=== PATIENT | male | born 1940 | race Caucasian/White ===

== ENCOUNTER → 2016-09-17 | Outpatient (CLI) | payer OTHER ==
--- NOTE | 2016-09-17 13:05 | DX ---
PA and Lateral Chest X-ray 1131 hours History: Pruritus. Evaluate for lymphoma/lymphadenopathy. Findings: Heart size and pulmonary vasculature are normal. The lungs are clear without infiltrates or effusions. There is no pneumothorax. There is no significant hilar or mediastinal lymphadenopathy ap preciated. The osseous structures are intact. Impression: Normal chest x-ray.
== END ==
LOC: BMCIMAGING 11:32
DX: L29.9 Pruritus, unspecified (principal); L30.9 Dermatitis, unspecified

== ENCOUNTER 2017-04-30 15:48 | Inpatient (IN) | payer OTHER ==
[2017-04-30] MEDS ORDERED: NS 500 ML IV ONE (16:52)
--- NOTE | 2017-04-30 16:58 | EDPHY ---
H & P Time Seen by Provider: 04/30/17 16:17 HPI/ROS: CHIEF COMPLAINT: Abdominal pain HISTORY OF PRESENT ILLNESS: The patient is a 76-year-old male who presents emergency department with multiple complaints. He states on Tuesday he developed vague symptoms. He felt as though he had "a bug". The patient reports mild decreased appetite. He also felt bloating. Today his pushed on his abdomen and he noticed right lower quadrant pain. He has mild discomfort in the right lower quadrant over the past couple of days but it is been subtle. He noticed that when he was playing tennis. He has no dysuria frequency. No fevers or chills. No nausea or vomiting. REVIEW OF SYSTEMS: My complete review of systems is negative except as mentioned in the HPI. Past Medical/Surgical History: Denies Past surgical history: Orthopedic surgery Social history: Patient does not smoke. He is . GENERAL: Well-appearing, in no acute distress, alert. HEENT: Eyes normal to inspection, normal pharynx, no signs of dehydration. NECK: No thyromegaly, no lymphadenopathy, supple. RESPIRATORY: Clear to auscultation bilaterally, no rales, rhonchi or wheezing. CVS: Regular rate and rhythm, no rubs, murmurs, or gallops. ABDOMEN: Soft, mild RLQ TTP, nondistended, no organomegaly. BACK: Normal to inspection, no CVA tenderness. SKIN: Normal color, no rash, warm, dry. No pallor. EXTREMITIES: No pedal edema, no calf tenderness, no Homans sign or cords, no joint swelling. NEURO/PSYCH: Alert and oriented, normal mood and affect, normal motor sensory exam. Smoking Status: Never smoked Physical Exam: GENERAL: Well-appearing, in no acute distress, alert. HEENT: Eyes normal to inspection, normal pharynx, no signs of dehydration. NECK: No thyromegaly, no lymphadenopathy, supple. RESPIRATORY: Clear to auscultation bilaterally, no rales, rhonchi or wheezing. CVS: Regular rate and rhythm, no rubs, murmurs, or gallops. ABDOMEN: Soft, nontender, nondistended, no organomegaly. BACK: Normal to inspection, no CVA tenderness. SKIN: Normal color, no rash, warm, dry. No pallor. EXTREMITIES: No pedal edema, no calf tenderness, no Homans sign or cords, no joint swelling. NEURO/PSYCH: Alert and oriented, normal mood and affect, normal motor sensory exam. Constitutional: Initial Vital Signs Temperature (C) 37.0 C 04/30/17 15:51 Heart Rate 87 04/30/17 15:51 Respiratory Rate 16 04/30/17 15:51 Blood Pressure 154/82 H 04/30/17 15:51 O2 Sat (%) 95 04/30/17 15:51 O2 Delivery Mode Room Air Allergies/Adverse Reactions: No Known Allergies Allergy (Unverified 04/30/17 15:50) Home Medications: Medication Instructions Recorded NK [No Known Home Meds] 04/30/17 Medical Decision Making - Diagnostics Imaging Results: Imaging Impressions Abdomen Ultrasound 04/30/17 16:52 Impression: 1. Complex hypoechoic lobulated possible mass right mid abdomen below the level of the kidney in the right flank region. CT of the abdomen and pelvis is recommended for further characterization. 2. The appendix is not positively identified. Findings discussed with Hailey Blank M.D. at 17:32 hour, 04/30/2017. Abdomen CT 04/30/17 17:19 Impression: 1. Complex lesion right mid iliac fossa in the expected location of the appendix with hypodense component centrally and complex thickened enhancement peripherally. 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 Other possibility would include ruptured walled off appendix or possibly carcinoid. 2. Complex hypodense partially fat containing lesion off the upper pole of the right kidney measuring about 11 mm with some punctate peripheral calcifications. This could represent incidental angiomyolipoma. Findings discussed with Hailey Blank M.D. at 19:31 hour, 04/30/2017. ED Course/Re-evaluation: In the emergency department I discussed possible etiologies with the patient I answered all his questions. An IV was placed. Laboratory studies were ordered. Ultrasound right lower quadrant was ordered. Patient had mildly elevated white count. Chemistry panel is unremarkable. Ultrasound: Please refer the dictated report by Dr. Franc Collins. I discussed the results with Dr. Collins. Based on the ultrasound results a CT with IV contrast was ordered. I discussed the plan with the patient. I answered all his questions. CT of the abdomen pelvis with IV contrast: Please refer the dictated report by Dr. Franc Collins. I personally reviewed the images with Dr. Collins. The patient appears to have messed the location of his appendix. Appendix is a large. This could represent appendiceal tumor versus abscess. I discussed the results with the patient. Patient was given Invanz 1 g IV. The I discussed the case with Dr. Hathaway from surgery. He will come evaluate the patient. Differential Diagnosis: My differential includes but is not limited to appendicitis, small-bowel obstruction, perforation, viral illness, electrolyte abnormality, sugar abnormality - Data Points Laboratory Results: Laboratory Results 04/30/17 17:10 04/30/17 17:10 04/30/17 04/30/17 04/30/17 17:10 17:10 17:10 WBC 14.39 10^3/uL H 10^3/uL (3.80-9.50) RBC 4.94 10^6/uL 10^6/uL (4.40-6.38) Hgb 15.1 g/dL g/dL (13.7-17.5) Hct 43.7 % % (40.0-51.0) MCV 88.5 fL fL (81.5-99.8) MCH 30.6 pg pg (27.9-34.1) MCHC 34.6 g/dL g/dL (32.4-36.7) RDW 12.4 % % (11.5-15.2) Plt Count 239 10^3/uL 10^3/uL (150-400) MPV 9.8 fL fL (8.7-11.7) Neut % (Auto) 78.8 % H % (39.3-74.2) Lymph % (Auto) 9.9 % L % (15.0-45.0) [place] % (Auto) 8.9 % % (4.5-13.0) Eos % (Auto) 1.3 % % (0.6-7.6) Baso % (Auto) 0.4 % % (0.3-1.7) Nucleat RBC Rel Count 0.0 % % (0.0-0.2) Absolute Neuts (auto) 11.34 10^3/uL H 10^3/uL (1.70-6.50) Absolute Lymphs (auto) 1.42 10^3/uL 10^3/uL (1.00-3.00) Absolute Monos (auto) 1.28 10^3/uL H 10^3/uL (0.30-0.80) Absolute Eos (auto) 0.19 10^3/uL 10^3/uL (0.03-0.40) Absolute Basos (auto) 0.06 10^3/uL 10^3/uL (0.02-0.10) Absolute Nucleated RBC 0.00 10^3/uL 10^3/uL (0-0.01) Immature Gran % 0.7 % % (0.0-1.1) Immature Gran # 0.10 10^3/uL 10^3/uL (0.00-0.10) PT 14.8 SEC SEC (12.0-15.0) INR 1.16 (0.83-1.16) APTT 27.5 SEC SEC (23.0-38.0) Sodium 136 mEq/L mEq/L (134-144) Potassium 4.3 mEq/L mEq/L (3.5-5.2) Chloride 102 mEq/L mEq/L (97-110) Carbon Dioxide 22 mEq/l mEq/l (22-31) Anion Gap 12 mEq/L mEq/L (8-16) BUN 21 mg/dL mg/dL (7-23) Creatinine 1.0 mg/dL mg/dL (0.7-1.3) Estimated GFR > 60 Glucose 90 mg/dL mg/dL (70-100) Calcium 8.9 mg/dL mg/dL (8.5-10.4) Total Bilirubin 0.7 mg/dL mg/dL (0.1-1.4) Conjugated Bilirubin 0.3 mg/dL mg/dL (0.0-0.5) Unconjugated Bilirubin 0.4 mg/dL mg/dL (0.0-1.1) AST 20 IU/L IU/L (17-59) ALT 34 IU/L IU/L (21-72) Alkaline Phosphatase 68 IU/L IU/L (38-126) Total Protein 6.9 g/dL g/dL (6.3-8.2) Albumin 3.9 g/dL g/dL (3.5-5.0) Lipase 82 IU/L IU/L (23-300) Medications Given: Discontinued Medications Sodium Chloride (Ns) 500 mls @ 0 mls/hr IV EDNOW ONE; Wide Open PRN Reason: Protocol Stop: 04/30/17 16:53 Last Admin: 04/30/17 17:00 Dose: 500 mls Departure - Departure Disposition: Home, Routine, Self-Care Clinical Impression: Abdominal pain Qualifiers: Abdominal location: right lower quadrant Qualified Code(s): R10.31 - Right lower quadrant pain Appendicitis Qualifiers: Appendicitis type: acute appendicitis Acute appendicitis type: with localized peritonitis Qualified Code(s): K35.3 - Acute appendicitis with localized peritonitis Condition: Good Instructions: Abdominal Pain (ED) Referrals: Janice Griffiths MD [Primary Care Provider] - As per Instructions
[2017-04-30 17:20] LABS: % IMMATURE GRANULYOCYTES 0.7 % (0.0-1.1); ADD DIFF? NO; ADD MORPH? NO; ADD SCAN? NO; ATYPICAL LYMPHOCYTE FLAG 0 (0-99); FRAGMENT RBC FLAG 0 (0-99); HEMATOCRIT 43.7 % (40.0-51.0); HEMOGLOBIN 15.1 g/dL (13.7-17.5); LEFT SHIFT FLG 0 (0-99); LIPEMIA HEMOLYSIS FLAG 90 (0-99); MEAN CELL HEMOGLOBIN 30.6 pg (27.9-34.1); MEAN CELL HEMOGLOBIN CONCENTR. 34.6 g/dL (32.4-36.7); MEAN CELL VOLUME 88.5 fL (81.5-99.8); MEAN PLATELET VOLUME 9.8 fL (8.7-11.7); PLATELET CLUMPS FLAG 0 (0-99); PLATELET COUNT 239 10^3/uL (150-400); RED BLOOD CELL COUNT 4.94 10^6/uL (4.40-6.38); RED CELL DISTRIBUTION WIDTH 12.4 % (11.5-15.2)
[2017-04-30 17:30] LABS: ALANINE AMINOTRANSFERASE 34 IU/L (21-72); ALBUMIN 3.9 g/dL (3.5-5.0); ALKALINE PHOSPHATASE 68 IU/L (38-126); ANION GAP 12 mEq/L (8-16); ASPARTATE AMINOTRANSFERASE 20 IU/L (17-59); BILIRUBIN,TOTAL 0.7 mg/dL (0.1-1.4); BILIRUBIN-CONJUGATED 0.3 mg/dL (0.0-0.5); BILIRUBIN-UNCONJUGATED 0.4 mg/dL (0.0-1.1); CALCIUM 8.9 mg/dL (8.5-10.4); CARBON DIOXIDE 22 mEq/l (22-31); CHLORIDE 102 mEq/L (97-110); GLOMERULAR FILTRATION RATE > 60; GLUCOSE 90 mg/dL (70-100); POTASSIUM 4.3 mEq/L (3.5-5.2); SODIUM 136 mEq/L (134-144); TOTAL PROTEIN 6.9 g/dL (6.3-8.2)
[2017-04-30] MEDS ORDERED: IOPAMIDOL (ISOVUE-300) 100 ML BTL ONE (17:45)
[2017-04-30 18:42] LABS: APTT 27.5 SEC (23.0-38.0); INR 1.16 (0.83-1.16); PROTIME(PATIENT) 14.8 SEC (12.0-15.0)
[2017-04-30] MEDS ORDERED: ERTAPENEM 1 GM in NS 100 ML IV ONE (19:34)
[2017-04-30 19:57] LABS: COLOR YELLOW; LEUKOCYTE ESTERASE,URINE NEGATIVE (NEGATIVE); NITRITE,URINE NEGATIVE (NEGATIVE)
[2017-04-30 20:01] LABS: MUCUS TRACE /lpf (NONE-1+)
--- NOTE | 2017-04-30 21:17 | PDGENHP ---
History and Physical - Chief Complaint Right lower quadrant abdominal pain - History of Present Illness Dio Regalado is a 76-year-old gentleman in good health who presents to the hospital after 4 days of worsening right lower quadrant abdominal pain. He has had fevers and chills at home bloating with eructation. The patient has not had any previous history of weight loss night sweats or other GI issues. His last colonoscopy he believes to be about 15 years ago. No family history of GI problems. The patient rates his pain as a 4 5/10 and he had rebound tenderness at home. Last meal was at 1:30 this afternoon History Information - Allergies/Home Medication List Allergies/Adverse Reactions: No Known Allergies Allergy (Unverified 04/30/17 15:50) Home Medications: Ibuprofen [Motrin (*)] 200 - 400 mg PO Q4 PRN 04/30/17 [Last Taken Unknown] I have personally reviewed and updated: family history, medical history, social history, surgical history - Past Medical History no pertinent PMH - Surgical History Additional surgical history: Right shoulder rotator cuff surgery x2, lumbar fusion, bilateral knee surgery - Family History Additional family history: Mother with skin cancer on her nose - Social History Smoking Status: Never smoked Alcohol Use: Occasionally 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 Review of Systems Review of Systems: ROS: 10pt was reviewed & negative except for what was stated in HPI & below Gastrointestinal: Reports: abdominal pain, abdominal distention Physical Exam Physical Exam: Temp Pulse Resp BP Pulse Ox 37.4 C 88 16 134/81 H 93 04/30/17 19:58 04/30/17 19:58 04/30/17 19:58 04/30/17 19:58 04/30/17 19:58 Constitutional: no apparent distress Eyes: anicteric sclera, EOMI Ears, Nose, Mouth, Throat: moist mucous membranes, hearing normal, ears appear normal Cardiovascular: regular rate and rhythym Peripheral Pulses: 2+: carotid (R), carotid (L), femoral (R), femoral (L), dorsalis-pedis (R), dorsalis-pedis (L) Respiratory: no respiratory distress, no rales or rhonchi, clear to auscultation Gastrointestinal: no palpable masses, tenderness (Right lower quadrant), rebound , No ascites, No boss's sign Genitourinary: No no bladder fullness Skin: warm Musculoskeletal: full muscle strength, normal joint ROM Neurologic: AAOx3, sensation intact bilaterally, CN II-XII Intact Psychiatric: interacting appropriately Lymph, Heme, Immunologic: No lymphadenopathy Lab Data & Imaging Review 04/30/17 17:10 04/30/17 17:10 WBC 14.39 10^3/uL (3.80-9.50) H 04/30/17 17:10 RBC 4.94 10^6/uL (4.40-6.38) 04/30/17 17:10 Hgb 15.1 g/dL (13.7-17.5) 04/30/17 17:10 Hct 43.7 % (40.0-51.0) 04/30/17 17:10 MCV 88.5 fL (81.5-99.8) 04/30/17 17:10 MCH 30.6 pg (27.9-34.1) 04/30/17 17:10 MCHC 34.6 g/dL (32.4-36.7) 04/30/17 17:10 RDW 12.4 % (11.5-15.2) 04/30/17 17:10 Plt Count 239 10^3/uL (150-400) 04/30/17 17:10 MPV 9.8 fL (8.7-11.7) 04/30/17 17:10 Neut % (Auto) 78.8 % (39.3-74.2) H 04/30/17 17:10 Lymph % (Auto) 9.9 % (15.0-45.0) L 04/30/17 17:10 [place] % (Auto) 8.9 % (4.5-13.0) 04/30/17 17:10 Eos % (Auto) 1.3 % (0.6-7.6) 04/30/17 17:10 Baso % (Auto) 0.4 % (0.3-1.7) 04/30/17 17:10 Nucleat RBC Rel Count 0.0 % (0.0-0.2) 04/30/17 17:10 Absolute Neuts (auto) 11.34 10^3/uL (1.70-6.50) H 04/30/17 17:10 Absolute Lymphs (auto) 1.42 10^3/uL (1.00-3.00) 04/30/17 17:10 Absolute Monos (auto) 1.28 10^3/uL (0.30-0.80) H 04/30/17 17:10 Absolute Eos (auto) 0.19 10^3/uL (0.03-0.40) 04/30/17 17:10 Absolute Basos (auto) 0.06 10^3/uL (0.02-0.10) 04/30/17 17:10 Absolute Nucleated RBC 0.00 10^3/uL (0-0.01) 04/30/17 17:10 Immature Gran % 0.7 % (0.0-1.1) 04/30/17 17:10 Immature Gran # 0.10 10^3/uL (0.00-0.10) 04/30/17 17:10 PT 14.8 SEC (12.0-15.0) 04/30/17 17:10 INR 1.16 (0.83-1.16) 04/30/17 17:10 APTT 27.5 SEC (23.0-38.0) 04/30/17 17:10 Sodium 136 mEq/L (134-144) 04/30/17 17:10 Potassium 4.3 mEq/L (3.5-5.2) 04/30/17 17:10 Chloride 102 mEq/L (97-110) 04/30/17 17:10 Carbon Dioxide 22 mEq/l (22-31) 04/30/17 17:10 Anion Gap 12 mEq/L (8-16) 04/30/17 17:10 BUN 21 mg/dL (7-23) 04/30/17 17:10 Creatinine 1.0 mg/dL (0.7-1.3) 04/30/17 17:10 Estimated GFR > 60 04/30/17 17:10 Glucose 90 mg/dL (70-100) 04/30/17 17:10 Calcium 8.9 mg/dL (8.5-10.4) 04/30/17 17:10 Total Bilirubin 0.7 mg/dL (0.1-1.4) 04/30/17 17:10 Conjugated Bilirubin 0.3 mg/dL (0.0-0.5) 04/30/17 17:10 Unconjugated Bilirubin 0.4 mg/dL (0.0-1.1) 04/30/17 17:10 AST 20 IU/L (17-59) 04/30/17 17:10 ALT 34 IU/L (21-72) 04/30/17 17:10 Alkaline Phosphatase 68 IU/L (38-126) 04/30/17 17:10 Total Protein 6.9 g/dL (6.3-8.2) 04/30/17 17:10 Albumin 3.9 g/dL (3.5-5.0) 04/30/17 17:10 Lipase 82 IU/L (23-300) 04/30/17 17:10 Urine Color YELLOW 04/30/17 19:49 Urine Appearance CLEAR 04/30/17 19:49 Urine pH 5.0 (5.0-7.5) 04/30/17 19:49 Ur Specific [place] > 1.035 (1.002-1.030) H 04/30/17 19:49 Urine Protein NEGATIVE (NEGATIVE) 04/30/17 19:49 Urine Ketones 1+ (NEGATIVE) H 04/30/17 19:49 Urine Blood 1+ (NEGATIVE) H 04/30/17 19:49 Urine Nitrate NEGATIVE (NEGATIVE) 04/30/17 19:49 Urine Bilirubin NEGATIVE (NEGATIVE) 04/30/17 19:49 Urine Urobilinogen NEGATIVE EU (0.2-1.0) 04/30/17 19:49 Ur Leukocyte Esterase NEGATIVE (NEGATIVE) 04/30/17 19:49 Urine RBC 5-10 /hpf (0-3) H 04/30/17 19:49 Urine WBC 1-3 /hpf (0-3) 04/30/17 19:49 Ur Epithelial Cells NONE SEEN /lpf (NONE-1+) 04/30/17 19:49 Urine Mucus TRACE /lpf (NONE-1+) 04/30/17 19:49 Urine Glucose NEGATIVE (NEGATIVE) 04/30/17 19:49 Imaging Review: Imaging Impressions Abdomen Ultrasound 04/30/17 16:52 Impression: 1. Complex hypoechoic lobulated possible mass right mid abdomen below the level of the kidney in the right flank region. CT of the abdomen and pelvis is recommended for further characterization. 2. The appendix is not positively identified. Findings discussed with Hailey Blank M.D. at 17:32 hour, 04/30/2017. Abdomen CT 04/30/17 17:19 Impression: 1. Complex lesion right mid iliac fossa in the expected location of the appendix with hypodense component centrally and complex thickened enhancement peripherally. 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 Other possibility would include ruptured walled off appendix or possibly carcinoid. 2. Complex hypodense partially fat containing lesion off the upper pole of the right kidney measuring about 11 mm with some punctate peripheral calcifications. This could represent incidental angiomyolipoma. Findings discussed with Hailey Blank M.D. at 19:31 hour, 04/30/2017. Visualized and Interpreted imaging results: Yes Interpretation: Discussed with Dr. 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 The patient has been started on Invanz. NPO, IV fluids. I anticipate approximately 3-5 day hospital stay postoperatively. All questions were addressed. The risks benefits and alternatives of surgery or outlined with verbal confirmation of understanding prior to signing consent. The risks include but are not limited to bleeding, infection, anesthesia complications, anastomotic leak, inability to complete surgery. Need for further intervention is also considered. The patient is spouse were happy with this plan. We will plan to proceed at the earliest opportunity.
[2017-04-30] MEDS ORDERED: MIDAZOLAM 2 MG/2 ML VIAL IVP ONE (21:27)
--- NOTE | 2017-04-30 21:27 | PDANEPAE ---
ANE History of Present Illness right colon mass ANE Past Medical History - Cardiovascular History Hx Hypertension: No Hx Arrhythmias: No Hx Chest Pain: No Hx Coronary Artery / Peripheral Vascular Disease: No Hx CHF / Valvular Disease: No Hx Palpitations: No - Pulmonary History Hx COPD: No Hx Asthma/Reactive Airway Disease: No Hx Recent Upper Respiratory Infection: No Hx Oxygen in Use at Home: No Hx Sleep Apnea: No - Endocrine History Hx Diabetes: No - Renal History Hx Renal Disorders: No - Liver History Hx Hepatic Disorders: No - Neurological & Psychiatric Hx Hx Neurological and Psychiatric Disorders: No ANE Review of Systems Review of systems is: negative Review of Systems: - Exercise capacity Exercise capacity: >=4 METS ANE Patient History - Allergies Allergies/Adverse Reactions: No Known Allergies Allergy (Unverified 04/30/17 15:50) - Home Medications Home Medications: Ibuprofen [Motrin (*)] 200 - 400 mg PO Q4 PRN 04/30/17 [Last Taken Unknown] - NPO status NPO Status: no food or drink >8 hours NPO Since - Liquids (Date): 04/30/17 NPO Since - Liquids (Time): 13:30 NPO Since - Solids (Date): 04/30/17 NPO Since - Solids (Time): 13:30 - Anes Hx Anes Hx: no prior problems - Smoking Hx Smoking Status: Never smoked - Alcohol Use Alcohol Use: Occasionally ANE Labs/Vital Signs - Labs Result Diagrams: 04/30/17 17:10 04/30/17 17:10 - Vital Signs Blood Pressure: 119/75 Heart Rate: 81 Respiratory Rate: 16 O2 Sat (%): 94 Weight: 74.843 kg ANE Physical Exam - Airway Neck exam: FROM Mallampati Score: Class 2 - Pulmonary Pulmonary: no respiratory distress - Cardiovascular Cardiovascular: regular rate and rhythym - ASA Status ASA Status: II ANE Anesthesia Plan Anesthesia Plan: general endotracheal anesthesia
[2017-04-30] MEDS ORDERED: HYDROmorphONE/DILAUDID 2 MG/ML INJ ONE (21:31)
[2017-04-30] MEDS ORDERED: fentaNYL 100 MCG/2 ML INJ ONE ×2 (21:31→23:58)
[2017-04-30] MEDS ORDERED: ROCURONIUM 50 MG/5 ML VIAL ONE (21:31)
[2017-04-30] MEDS ORDERED: DEXAMETHASONE 4 MG/ML VIAL ONE (21:31)
[2017-04-30] MEDS ORDERED: LIDOCAINE 2% 5 ML SDV ONE (21:31)
[2017-04-30] MEDS ORDERED: PROPOFOL 200 MG/20 ML VIAL ONE (21:32)
[2017-04-30] MEDS ORDERED: MIDAZOLAM 2 MG/2 ML VIAL ONE (21:33)
[2017-04-30] MEDS ORDERED: BUPIVACAINE 0.5% 30 ML SDV ONE (21:54)
[2017-04-30] MEDS ORDERED: SUGAMMADEX SODIUM 200 MG/2 ML VIAL IVP ONE (23:06)
[2017-04-30] MEDS ORDERED: NALOXONE HCL 0.4 MG/ML INJ IVP PRN (23:25)
[2017-04-30] MEDS ORDERED: ONDANSETRON 4 MG/2 ML VIAL IVP PRN ×2 (23:25→23:33)
[2017-04-30] MEDS ORDERED: HYDROmorphONE/DILAUDID 1 MG/ML INJ IVP PRN (23:25)
[2017-04-30] MEDS ORDERED: ALBUTEROL 3 ML DEYVIAL IH PRN (23:25)
[2017-04-30] MEDS ORDERED: fentaNYL 100 MCG/2 ML INJ IVP PRN (23:25)
--- NOTE | 2017-04-30 23:28 | POSTANESTH ---
Post Anesthetic Evaluation Cardiovascular Status: Normal, Stable Respiratory Status: Normal, Stable Level of Consciousness/Mental Status: Can Participate in Eval Pain Control: Adequate, Prn Tx Ordered Nausea/Vomiting Control: Adequate, Prn Tx Ordered Complications Possibly Related to Anesthesia: None Noted
--- NOTE | 2017-04-30 23:33 | POSTOPPROG ---
Post Op Note Date of Operation: 04/30/17 Surgeon: Peter Hathaway Roster Clerk: none Anesthesiologist: Jamir Anesthesia: GET(General Endotracheal) Pre-op Diagnosis: Right colon mass Post-op Diagnosis: same Procedure: Right colectomy Findings: right colon mass induration with contained abscess Inf/Abcess present in the surg proc area at time of surgery?: Yes Depth: Organ Space EBL: 100-500 Total fluids administered: 500 ml LR Specimen(s): right colon
[2017-04-30] MEDS ORDERED: HYDROCODONE/APAP 5/325 TAB PO PRN (23:35)
[2017-05-01] MEDS: IBUPROFEN 600 MG TAB PO SCH ×5 (00:39→20:21)
[2017-05-01] MEDS: LR 1,000 ML IV SCH ×2 (00:50→10:01)
[2017-05-01] MEDS: METOCLOPRAMIDE 10 MG/2 ML VIAL IVP SCH ×4 (00:54→19:21)
[2017-05-01 04:40] LABS: HEMATOCRIT 41.7 % (40.0-51.0); HEMOGLOBIN 14.3 g/dL (13.7-17.5)
[2017-05-01 04:53] LABS: ANION GAP 11 mEq/L (8-16); CALCIUM 8.4 mg/dL (8.5-10.4); CARBON DIOXIDE 20 mEq/l (22-31); CHLORIDE 105 mEq/L (97-110); GLOMERULAR FILTRATION RATE > 60; GLUCOSE 135 mg/dL (70-100); POTASSIUM 4.9 mEq/L (3.5-5.2); SODIUM 136 mEq/L (134-144)
--- NOTE | 2017-05-01 06:41 | GOP ---
[f rep st] OPERATIVE REPORT DATE OF OPERATION: SURGEON: Peter Hathaway MD COLOR ROOM ATTENDANT: None. ANESTHESIOLOGIST: Kong Bowie MD. PREOPERATIVE DIAGNOSIS: Right colon mass. POSTOPERATIVE DIAGNOSIS: Right colon mass. PROCEDURE PERFORMED: Right open hemicolectomy. FINDINGS: Abscess in the organ space area as well as phlegmon of the right colon with mass effect. SPECIMENS: Right colon to permanent pathology. INDICATIONS: This is a 76-year-old gentleman who presents to the hospital for acute right lower quad rant abdominal pain, thought to be appendicitis. CT scan shows mass in the right lower quadrant, pos sible abscess and phlegmon. The patient has been apprised of the risks, benefits, and alternatives t o surgery and he has agreed to proceed. DESCRIPTION OF PROCEDURE: Procedure as follows patient was brought to the operating room. After ind uction of endotracheal anesthesia in a supine position, the abdomen was prepped with chlorhexidine, d raped sterilely. A time-out procedure was then performed according to institutional standards. Loca l anesthetic was infused in the skin and subcutaneous tissues of the abdomen. A midline laparotomy w as made, deepened with electrocautery. The abdomen was entered sharply. A small umbilical hernia wa s noted. This was repaired on the closure of the fascia. The right colon mass was immediately ident ified and phlegmon is noted around this area and it is stuck to the right paracolic gutter. Careful dissection with electrocautery was used to dissect the colon off the abdominal wall and the small bow el and right colon are brought in the field of dissection and medialized. The omentum is quite heavy . It is taken off the anterior border of the transverse colon, and the right branch of the middle co lic vessel is identified. The mesentery was controlled with LigaSure bipolar energy and 2nd mesenter y is then removed along with the colon and the mass. ELDER 75 were used to divide the colon and the sm all bowel and a [id number] functional end-to-end anastomosis is made by creating enterotomies in th e small bowel anti-mesenteric surface and the colon taenia, and a single firing of 75 ELDER is used to make the anastomosis. The enterotomy created in making the anastomosis was reapproximated in 2 layer s using 3-0 PDS and imbricated with 3-0 Vicryl sutures. Hemostasis was assured. The abdomen and pel vis are irrigated with saline and the soft count is assured to be correct. Inspection again is done for bleeding. The anastomosis appears healthy. The bowel was returned to its natural position. The mesenteric defect was reapproximated using 3-0 Vicryl. The abdomen was then closed using 0 PDS, irr igated with saline and closed with a running Monocryl suture. Dermabond was applied. The patient aw akened, extubated, taken to recovery room in stable condition. No immediate complications. /[id number]/MODL
[2017-05-01] MEDS: ENOXAPARIN 40 MG/0.4 ML SYR SC SCH (08:00)
[2017-05-01] MEDS ORDERED: NS 500 ML IV ONE (08:09)
--- NOTE | 2017-05-01 08:12 | SOAPPROG ---
SOAP Progress Note Assessment/Plan: Assessment/Plan: Open right colectomy 04/30/17 for cecal mass Pain controlled with norco and ibuprofen. Minimal void overnight 250 ml on bladder scan -oob to urinate this am with success Tolerated juice AA&O Abd soft NT, ND. Incision small amount serosang staining No edema NS bolus x1 advance diet as tolerated Await path results Lovenox for prophylaxis 05/01/17 08:09 Objective: Vital Signs Temp Pulse Resp BP Pulse Ox 36.6 C 65 16 89/65 L 95 05/01/17 03:22 05/01/17 03:22 05/01/17 03:22 05/01/17 03:22 05/01/17 03:22 Laboratory Results 05/01/17 04:17 05/01/17 04:17 04/30/17 05/01/17 05/02/17 05:59 05:59 05:59 Intake Total 1538 Output Total 100 Balance 1438 PT 14.8 SEC (12.0-15.0) 04/30/17 17:10 INR 1.16 (0.83-1.16) 04/30/17 17:10 ICD10 Worksheet Patient Problems: Problems Problem Status Onset Abdominal pain Acute Appendicitis Acute
--- NOTE | 2017-05-01 18:12 | ASMTCMCOM ---
CM Note CM Note Notes: Reviewed chart. 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 Pt POD 1, open right colectomy for cecal mass. Pt lives w/ his , independently. Discharge needs/plan remains TBD. CM will cont to follow. Date Signed: 05/01/2017 06:11 PM Electronically Signed By:Kassie Hazel
[2017-05-02] MEDS: METOCLOPRAMIDE 10 MG/2 ML VIAL IVP SCH ×3 (00:16→12:25)
[2017-05-02] MEDS: IBUPROFEN 600 MG TAB PO SCH ×2 (06:28→12:25)
[2017-05-02 07:59] VITALS: RESP 18
[2017-05-02] MEDS: ENOXAPARIN 40 MG/0.4 ML SYR SC SCH (08:09)
[2017-05-02 10:35] VITALS: O2SAT 93
[2017-05-02 13:13] VITALS: BP 127/66; PULSE 78; TEMP 98.2
--- NOTE | 2017-05-02 16:37 | ASDISCHSUM ---
Discharge Information Plan Status:Home with No Needs Medically Cleared to Leave:05/02/2017 Discharge Date:05/02/2017 02:50 PM CM D/C Disposition:Home, Routine, Self-Care ADT D/C Disposition:Home, Routine, Self-Care Projected Discharge Date:05/02/2017 11:00 AM Transportation at D/C:Family Discharge Delay Reason: Follow-Up Date:05/02/2017 11:00 AM Discharge Slot:1 - 8:01 am - 12:00 noon Final Diagnosis:appendicitis Placement Information Patient Contact Information Contact Name:ALYSIA Relationship: Address:[address] City:[place] Alternate Phone: [facility]/Zip Code:[place] [address] Email: Financial Information Financial Class: Primary Plan Desc:MEDICARE INPATIENT Primary Plan Number:[id number] Secondary Plan Desc:[facility] Secondary Plan Number:[id number] Assessment Information [facility] CM Progress Note CM Note CM Note Notes: Reviewed chart. 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 Pt POD 1, open right colectomy for cecal mass. Pt lives w/ his , independently. Discharge needs/plan remains TBD. CM will cont to follow. Date Signed: 05/01/2017 06:11 PM Electronically Signed By:Kassie Hazel BC CM Progress Note CM Note CM Note Notes: Pt discharged home Independent with no additional C/M at this time. Date Signed: 05/02/2017 04:35 PM Electronically Signed By:LAWRENCE Nichols Intervention Information Intervention Type:*Incorrect Registration Date of Service:04/30/2017 11:34 PM Patient Type:Inpatient Staff Member:Judy Quan Hours:0.25 Discipline: Severity:1 (0-1 Hours) Comment:Registered observation, admit order wr itten for inpatient status. Intervention Type:*IM-Signed Date of Service:05/02/2017 02:40 PM Patient Type:Inpatient Staff Member:Laure Schmitz Hours: Discipline: Severity: Comment:
--- NOTE | 2017-05-22 10:13 | GDS ---
[f rep st] DISCHARGE SUMMARY HISTORY OF PRESENT ILLNESS: This is a 76-year-old gentleman who presented to the hospital with 4 day s worth of abdominal pain, thought to be appendicitis. The patient was found to have a mass in his right colon, which was consistent with cecal cancer obstr ucting the appendix with intraabdominal abscess secondary to perforation. PAST MEDICAL HISTORY: Is not pertinent. MEDICATIONS AT HOME,: Ibuprofen p.r.n. SURGICAL HISTORY: Includes right rotator cuff surgery x2, lumbar fusion, bilateral knee surgery. FAMILY HISTORY: Significant for mother with skin cancer. SOCIAL HISTORY: Never smoked. Occasional alcohol use. 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 Lives with his at home. PHYSICAL EXAMINATION: The patient was brought into the hospital and found to have pain in the right lower quadrant consistent with the exam. IMAGING: CT scan was personally reviewed and then reviewed again with the Radiology Department, Dr. Collins. HOSPITAL COURSE: The patient underwent an open right colectomy for this problem. He was found to johnson ve, on final pathology, mucinous cancer of the cecum, invasive, approximately 5 cm, negative margins, 0/27 lymph nodes positive. It is a T3 N0 MX pathology. The patient was advanced with his diet and activity. He was tolerating pain with oral analgesics. A ll questions were addressed prior to his discharge. He will follow up in the office in 1-2 weeks. No hospital complications were noted. /[id number]/MODL
== END 2017-05-02 14:50 | disposition home or self-care (01) | DRG 329 ==
LOC: OBSVTOIN 23:34 → F1N 05-01 00:29
PROVIDERS: ADMIT Surgery; ATTEND Surgery
PROC: 0DTF0ZZ Resection of Right Large Intestine, Open Approach (ICD-10-PCS; principal; 2017-04-30 21:30)
DX: C18.0 Malignant neoplasm of cecum (principal); K65.1 Peritoneal abscess; K63.1 Perforation of intestine (nontraumatic); Z84.0 Family history of diseases of the skin and subcutaneous tissue
CPT/HCPCS: 96365; J1100; J1170; J1335; J1650; J2250; J2704; J2765; J3010; Q9967

== ENCOUNTER → 2019-02-02 | Outpatient (CLI) | payer OTHER | LOC: BMCIMAGING 08:11 ==